=== PATIENT | female | born 1950 | race Caucasian/White ===

== ENCOUNTER 2021-11-25 14:14 | Emergency (ER) | payer OTHER, MEDICARE ==
[~2021-11-25] VITALS: Ht 165.1 cm; Wt 75.0 kg
[~2021-11-25 14:14] MED LIST: ASPIRIN81 MG PO; GLUCOPHAGE500 MG PO; SYNTHROID50 MCG PO; ULTRAM50 M1 PO
[2021-11-25 14:21] VITALS: BP 118/70
[2021-11-25 14:31] VITALS: BP 117/89
[2021-11-25] MEDS ORDERED: PLAVIX75 MG PO (14:43)
[2021-11-25] MEDS ORDERED: GLIPIZIDE ER5 MG PO (14:43)
[2021-11-25] MEDS ORDERED: TRULICITY4.5 MG/0.5 (14:44)
[2021-11-25 15:31] VITALS: BP 100/65
[2021-11-25 16:00] VITALS: BP 113/78
[2021-11-25] MEDS ORDERED: HYDROCO/APAP1 TA9 PO (16:13)
[2021-11-25 16:17] VITALS: BP 113/78
== END 2021-11-25 16:33 | disposition home or self-care (01) | DRG 563 ==
LOC: ED 14:14
DX: S42.022A Displaced fracture of shaft of left clavicle, initial encounter for closed fracture (principal); I10 Essential (primary) hypertension; E11.9 Type 2 diabetes mellitus without complications; J44.9 Chronic obstructive pulmonary disease, unspecified; F17.200 Nicotine dependence, unspecified, uncomplicated; V28.4XXA Motorcycle driver injured in noncollision transport accident in traffic accident, initial encounter

== ENCOUNTER 2021-12-20 11:46 | Emergency (ER) | payer OTHER, MEDICARE ==
[2021-12-20] VITALS (10 sets, daily range): BP systolic 123–199; BP diastolic 71–103
[~2021-12-20] VITALS: Ht 165.1 cm; Wt 74.1 kg
[~2021-12-20 11:46] MED LIST changes: +GLIPIZIDE ER5 MG PO; +HYDROCO/APAP1 TA9 PO; +PLAVIX75 MG PO; +TRULICITY4.5 MG/0.5
[2021-12-20 12:32] LABS: HEMATOCRIT 52.4 % (37.0-47.0); HEMOGLOBIN 17.7 g/dl (12.0-16.0); IMMATURE GRANULOCYTES 0.2 % (0.0-5.0); MEAN CORPUSCULAR HGB 30.1 pG CALC (26.0-32.0); MEAN CORPUSCULAR HGB CONC 33.8 g/dL CAL (32.0-36.0); NEUT# 11.89 thou/uL (2.00-7.15); RED BLOOD COUNT 5.89 mill/uL (4.20-5.60); RED CELL DISTRI WIDTH 13.1 % (11.5-15.5)
[2021-12-20 12:38] LABS: BUN 20 mg/dL (8-23); BUN/CREATININE RATIO 33 (12-20 (CALC)); CARBON DIOXIDE 22 mmol/l (22-30); CHLORIDE 102 mmol/l (95-108); CREATININE 0.6 mg/dL (0.5-1.0); GFR FOR AFR.AMER. > 60 ML/MIN (>=60 (CALC)); GFR OTHER RACES > 60 ML/MIN (>=60 (CALC)); SGOT/AST 26 u/l (9-36); SODIUM 136 mmol/l (137-146)
[2021-12-20 12:45] LABS: ALBUMIN 4.6 g/dL (3.2-5.0); ALKALINE PHOSPHATASE 143 u/l (38-126); ANION GAP 17 (6-22 (CALC)); BILIRUBIN, TOTAL 0.6 mg/dL (0.0-1.4); POTASSIUM 4.6 mmol/l (3.5-5.1); TOTAL PROTEIN 7.9 g/dL (6.3-8.2)
[2021-12-20 14:03] LABS: ACT PARTIAL THROMBO TIME 34.1 SECONDS (20.0-32.5); PROTHROMBIN TIME 9.9 SECONDS (9.0-12.5)
== END 2021-12-20 15:39 | DRG 282 ==
LOC: ED 11:46
PROVIDERS: Family Medicine
DX: I21.4 Non-ST elevation (NSTEMI) myocardial infarction (principal); I10 Essential (primary) hypertension; I73.9 Peripheral vascular disease, unspecified; S42.002D Fracture of unspecified part of left clavicle, subsequent encounter for fracture with routine healing; X58.XXXD Exposure to other specified factors, subsequent encounter; I25.2 Old myocardial infarction; F17.210 Nicotine dependence, cigarettes, uncomplicated; Z95.5 Presence of coronary angioplasty implant and graft; Z98.890 Other specified postprocedural states
CPT/HCPCS: J1644

== ENCOUNTER 2022-03-11 11:07 | Emergency (ER) | payer MEDICARE, OTHER ==
[2022-03-11] VITALS (9 sets, daily range): BP systolic 107–144; BP diastolic 55–67
[~2022-03-11] VITALS: Ht 165.1 cm; Wt 72.7 kg
== END 2022-03-11 13:48 | disposition home or self-care (01) ==
LOC: ED 11:07
DX: M25.572 Pain in left ankle and joints of left foot (principal); I10 Essential (primary) hypertension; I73.9 Peripheral vascular disease, unspecified; E03.9 Hypothyroidism, unspecified; I25.2 Old myocardial infarction; Z95.820 Peripheral vascular angioplasty status with implants and grafts; Z95.5 Presence of coronary angioplasty implant and graft

== ENCOUNTER 2024-04-08 15:55 | Emergency (ER) | payer OTHER, MEDICARE ==
[~2024-04-08] VITALS: Ht 165.1 cm; Wt 70.3 kg
[~2024-04-08 15:55] MED LIST changes: +GLIPIZIDE ER2.5 MG PO; -GLIPIZIDE ER5 MG PO; +VITAMIN D-32000 UNI1
[2024-04-08 16:01] VITALS: BP 144/72
[2024-04-08] MEDS ORDERED: traMADol HCL 50 MG/TAB PO ONE (16:10)
[2024-04-08 16:15] VITALS: BP 149/72
[2024-04-08 16:30] VITALS: BP 142/90
[2024-04-08] MEDS ORDERED: TRAMADOL HYDROC50 M1 PO (16:33)
[2024-04-08 17:00] VITALS: BP 132/69
[2024-04-08 17:56] VITALS: BP 131/85
[2024-04-08 17:57] VITALS: BP 131/85
== END 2024-04-08 18:10 | disposition home or self-care (01) | DRG 563 ==
LOC: ED 15:55
DX: S82.091A Other fracture of right patella, initial encounter for closed fracture (principal); S00.12XA Contusion of left eyelid and periocular area, initial encounter; S80.01XA Contusion of right knee, initial encounter; I10 Essential (primary) hypertension; E03.9 Hypothyroidism, unspecified; I73.9 Peripheral vascular disease, unspecified; F17.210 Nicotine dependence, cigarettes, uncomplicated; I25.2 Old myocardial infarction; W01.198A Fall on same level from slipping, tripping and stumbling with subsequent striking against other object, initial encounter; Y93.89 Activity, other specified; Y92.128 Other place in nursing home as the place of occurrence of the external cause; Y99.0 Civilian activity done for income or pay; Z79.02 Long term (current) use of antithrombotics/antiplatelets